=== PATIENT | female | born 1955 | race Caucasian/White ===

== ENCOUNTER 2017-03-30 09:00 | Emergency (ER) | payer MEDICARE ==
--- NOTE | 2017-03-30 09:51 | RAD ---
CLINICAL HISTORY: Bilateral flank and abdominal pain COMPARISON: None relevant TECHNIQUE: Multiple contiguous axial CT scans were obtained of the abdomen and pelvis, without intravenous contrast enhancement. Coronal and sagittal multiplanar reformations are submitted for review. Oral contrast was not administered. FINDINGS: The study is limited by the lack of intravenous contrast. This limits evaluation of the solid organs and vasculature. LUNG BASES: The lung bases are clear. LIVER: The liver is mildly enlarged measuring 19.5 cm BILE DUCTS: There is no intrahepatic or extrahepatic biliary dilatation. GALLBLADDER: The gallbladder is normal, without pericholecystic inflammatory change. PANCREAS: The pancreas is normal, without mass or ductal dilatation. SPLEEN: Normal in size and appearance. UPPER GI TRACT: Evaluation of the gastrointestinal tract is limited by incomplete gastric distention. The upper GI tract is unremarkable. SMALL BOWEL AND MESENTERY.: There is no obstruction. There is mild stranding of the mesenteric fat with several small lymph nodes COLON: The colon is normal in contour, course, caliber. There is no pericolonic inflammatory change. ADRENALS: Normal bilaterally. KIDNEYS: There is no hydronephrosis or nephrolithiasis. There is a small exophytic lesion of the upper pole of the right kidney which may represent a cyst but is too small to definitively characterize measuring 0.4 cm in size. BLADDER: The bladder is smooth in contour. PELVIC ORGANS: Angio-Seal uterine fibroid is noted AORTA: The aorta is normal. IVC: Unremarkable LYMPH NODES: There is no lymphadenopathy by size criteria. ABDOMINAL WALL: There is no evidence for abdominal wall hernia. BONES AND SOFT TISSUES: There are mild diffuse degenerative changes. OTHER: None IMPRESSION: 1. NO HYDRONEPHROSIS OR NEPHROLITHIASIS. 2. SMALL EXOPHYTIC LESION OF THE RIGHT KIDNEY. THIS IS TOO SMALL TO DEFINITIVELY CHARACTERIZE. 3. MILD STRANDING OF THE MESENTERIC FAT SUGGESTIVE OF MESENTERIC PANNICULITIS. 4. MILD HEPATOMEGALY
[2017-03-30 10:02] LABS: Hematocrit 43 % (35-47); Hemoglobin 14.1 g/dl (12.0-16.0); Mean Corpuscular HGB Conc 33 g/dl (31-36); Mean Corpuscular Hemoglobin 28 pg (27-31); Mean Corpuscular Volume 83 fL (80-97); Mean Platelet Volume 9 um3 (7.4-10.4); Red Blood Count 5.14 10^6/ul (4.0-5.4); Red Cell Distribution Width 15 % (10.5-15)
[2017-03-30 10:17] LABS: Urine Bacteria Absent (Absent); Urine Bilirubin Negative (Negative); Urine Glucose Negative (Negative); Urine Nitrite Negative (Negative)
[2017-03-30 10:21] LABS: Albumin 4.3 g/dL (3.2-5.2); BUN/Creatinine Ratio 15.3 (8-20); C Reactive Protein 38.89 mg/L (< 5.00); Calcium 9.6 mg/dL (8.6-10.3); EGFR African American 105.2 (>60); EGFR Non-African American 81.8 (>60); Globulin 3.4 g/dL (2-4); Potassium 3.8 mmol/L (3.5-5.0); Total Bilirubin 0.5 mg/dL (0.2-1.0); Total Protein 7.7 g/dL (6.4-8.9)
[2017-03-30] MEDS ORDERED: Ciprofloxacin 400MG IVPREMIX(* 400 MG/200 ML BAG IVPB ONE (10:57)
[2017-03-30] MEDS ORDERED: Ketorolac INJ* 30 MG/ML 1 ML VIAL IM ONE (11:58)
[2017-03-30 13:07] VITALS: BP 142/76
--- NOTE | 2017-03-30 17:14 | ED ---
Won Read Billy, scribed for Oren Ngo MD on 03/30/17 at 0916 . Abdominal Pain/Female - HPI Summary HPI Summary: Patient is a 62 year-old female coming to [facility] for evaluation of intermittent lower abdominal pain and flank pain for the last 2 weeks. She denies any fever until last night, when she measured a temperature of 102.1F at home. She also reports urinary symptoms, including increased urgency, frequency, hematuria, and dysuria. Patient also reports intermittent loose stools. - History of Current Complaint Chief Complaint: EDFlankPain Stated Complaint: FLANK PAIN/ABD PAIN/ Time Seen by Provider: 03/30/17 09:11 Hx Obtained From: Patient Onset/Duration: Gradual Onset Timing: Intermittent Episode Lasting Severity Initially: Moderate Severity Currently: Moderate Pain Intensity: 4 Pain Scale Used: 0-10 Numeric Location: Discrete At: RLQ, Discrete At: LLQ, Suprapubic, Flank Radiates: No Aggravating Factor(s): Nothing Alleviating Factor(s): Nothing Associated Signs and Symptoms: Positive: Fever, Urinary Symptoms Allergies/Adverse Reactions: Allergies Allergy/AdvReac Type Severity Reaction Status Date / Time No Known Allergies Allergy Verified 09/13/14 15:12 PMH/Surg Hx/FS Hx/Imm Hx Endocrine/Hematology History: Denies: Hx Diabetes Cardiovascular History: Reports: Hx Hypertension Musculoskeletal History: Reports: Hx Arthritis, Hx Back Problems Psychiatric History: Reports: Hx Depression - Cancer History Hx Chemotherapy: No Hx Radiation Therapy: No - Surgical History Surgery Procedure, Year, and Place: 2x c-sections Infectious Disease History: No Infectious Disease History: Denies: Traveled Outside the [place] in Last 30 Days - Family History Known Family History: Positive: Hypertension, Diabetes, Renal Disease - Social History Alcohol Use: None Substance Use Type: Reports: None Smoking Status (MU): Former Smoker Type: eCigarettes Review of Systems Positive: Fever Positive: Abdominal Pain Positive: dysuria, frequency, flank pain, hematuria, urgency All Other Systems Reviewed And Are Negative: Yes Physical Exam - Summary Physical Exam Summary: VITAL SIGNS: Reviewed. GENERAL: Patient is an obese female who is lying comfortable in the stretcher. Patient is not in any acute respiratory distress. HEAD AND FACE: Normocephalic and atraumatic. EYES: PERRLA, EOMI x 2, No injected conjunctiva. EARS: Hearing grossly intact. Ear canals and tympanic membranes are WNL. MOUTH: Oropharynx within normal limits. NECK: Supple, trachea is midline, no adenopathy, no JVD. CHEST: Symmetric, no tenderness at palpation LUNGS: Clear to auscultation bilaterally. No wheezing or crackles. CVS: RRR,, S1 and S2 present, no murmurs or gallops appreciated. ABDOMEN: Soft, non-tender. No signs of distention. Positive bowel sounds. No rebound no guarding, and no masses palpated. No abdominal bruit or pulsations. positive b/l flank tenderness. no CVAT's EXTREMITIES: FROM in all major joints, no edema, no cyanosis or clubbing. NEURO: Alert and oriented x 3. No acute neurological deficits. Speech is normal. SKIN: Dry and warm Triage Information Reviewed: Yes Vital Signs On Initial Exam: Initial Vitals Temp Pulse Resp BP Pulse Ox 99.6 F 92 16 148/81 100 03/30/17 09:01 03/30/17 09:01 03/30/17 09:01 03/30/17 09:01 03/30/17 09:01 Vital Signs Reviewed: Yes Diagnostics - Vital Signs Vital Signs Temp Pulse Resp BP Pulse Ox 03/30/17 09:01 99.6 F 92 16 148/81 100 - Laboratory Result Diagrams: 03/30/17 09:50 03/30/17 09:50 Lab Statement: Any lab studies that have been ordered have been reviewed, and results considered in the medical decision making process. - CT abd/pel wo CT Interpretation Completed By: Radiologist - 1. NO HYDRONEPHROSIS OR NEPHROLITHIASIS. 2. SMALL EXOPHYTIC LESION OF THE RIGHT KIDNEY. THIS IS TOO SMALL TO DEFINITIVELY CHARACTERIZE. 3. MILD STRANDING OF THE MESENTERIC FAT SUGGESTIVE OF MESENTERIC PANNICULITIS. 4. MILD HEPATOMEGALY Abdominal Pain Fem Course/Dx - Course Course Of Treatment: Patient is a 62 year-old female coming to [facility] for evaluation of intermittent lower abdominal pain and flank pain for the last 2 weeks. She denies any fever until last night, when she measured a temperature of 102.1F at home. She also reports urinary symptoms, including increased urgency, frequency, hematuria, and dysuria. Patient also reports intermittent loose stools. Bloodwork WNL except for CRP of 38.8. UA shows acute UTI. Because of the flank pain and abdominal pain, I have decided to order CT abd/pel to r/o kidney stones. The results show findings as read by the radiologist: "1. No hydronephrosis or nephrolithiasis. 2. Small exophytic lesion of the right kidney. This is too small to definitively characterize. 3. Mild stranding of the mesenteric fat suggestive of mesenteric panniculitis. 4. Mild hepatomegaly. " In the ED course, the patient was given IV fluids, Toradol for the pain, ciprofloxacin for UTI. I discussed the CT imaging results with Dr. Begum who recommends to treat the mesenteric panniculitis only with NSAIDs. I discussed the test results with the patient who agrees to follow up with PCP. She will return to the ED with increased pain, N/V, fevers, or chills. She is hemodynamically stable, A&Ox3. - Diagnoses Differential Diagnosis: Positive: Constipation, Renal Colic, Urinary Tract Infection Provider Diagnoses: Urinary tract infection, Mesenteric panniculitis - Provider Notifications Discussed Care Of Patient With: Dr. Begum (surgeon) at 1130: treat symptomatically. Discharge - Discharge Plan Condition: Stable Disposition: HOME Patient Education Materials: Urinary Tract Infection in Women (ED) The documentation as recorded by the Won gomez Billy accurately reflects the service I personally performed and the decisions made by me, Oren Ngo MD.
== END 2017-03-30 13:06 | disposition home or self-care (01) ==
LOC: ED 09:00
DX: N39.0 Urinary tract infection, site not specified (principal); K65.4 Sclerosing mesenteritis; R50.9 Fever, unspecified; R10.84 Generalized abdominal pain; Z87.891 Personal history of nicotine dependence
CPT/HCPCS: 36415; 74176; 80053; 81003; 81015; 83605; 83690; 85025; 86140; 87086; 99282; J0744